=== PATIENT | female | born 1980 | race Caucasian/White ===

== ENCOUNTER 2017-01-31 07:18 | Emergency (ER) | payer BC, MEDICAID ==
[~2017-01-31] VITALS: Ht 165.1 cm; Wt 92.0 kg
[~2017-01-31 07:18] MED LIST: CIPR500T4 PO; NAPR220T95 PO; PHEN-426 PO; XANA1TAB6 PO
[2017-01-31 07:20] VITALS: BP 148/84; PULSE 100; RESP 16; TEMP 99.1; O2SAT 96
[2017-01-31] MEDS ORDERED: AZIT250T3 PO (07:36)
[2017-01-31] MEDS ORDERED: ALBU6.7H INH (07:36)
[2017-01-31] MEDS ORDERED: BENZ100 PO (07:36)
--- NOTE | 2017-01-31 07:37 | PD ---
HPI Chief Complaint: Cold / Flu Symptoms Time Seen by Provider: 07:20 Travel History International Travel<30 days: No Contact w/Intl Traveler<30days: No Traveled to known affect area: No History of Present Illness HPI 36-year-old female complains of cough and chest congestion with runny nose for about 3-4 days. + Fever intermittently overnight. Sleep is decreased 2/2 cough and fever. No shortness of breath. [id number] medications were not helpful. Patient has had similar prior episodes and reports improvement with antibiotics. PFSH Past Medical History Anxiety: Yes Diminished Hearing: No Genitourinary: Yes (H/O numerous UTI's) Influenza Vaccination: No ?: Not : 0 Ovarian Cysts: Yes Past Surgical History Genitourinary Surgery: Yes (LEFT KIDNEY REMOVED 2003/ LEFT URETER REMOVED 2008) Other Surgery: Yes (LT KIDNEY REMOVED 2003 FOR CHRONIC INFECTIONS LEFT KIDNEY NECROTIC) Social History Alcohol Use: Yes (OCC) Tobacco Use: No Substance Use: No Allergies-Medications (Allergen,Severity, Reaction): Coded Allergies: No Known Allergies (Verified Adverse Reaction, Unknown, 01/31/17) Reported Meds & Prescriptions Reported Meds & Active Scripts Active Proventil Hfa 6.7 GM Inh (Albuterol Sulfate) 90 Mcg/Act Aer 2 Puff INH Q4-6H PRN Tessalon Perles (Benzonatate) 100 Mg Cap 100 Mg PO TID PRN Azithromycin 250 Mg Tab 250 Mg PO DIRECTED Take 2 tabs (500 mg) on day 1 then 1 tab daily x 4 days. Review of Systems General / Constitutional: No: Fever HENT: Positive: Rhinitis, Rhinorrhea Respiratory: Positive: Cough, No: Shortness of Breath Physical Exam Narrative GENERAL: 36-year-old female well-nourished well-developed pleasant ENT: Minimal rhinorrhea. Posterior oropharynx is patent without erythema exudate or tonsillar hypertrophy. SKIN: Warm and dry. HEAD: Normocephalic. EYES: No scleral icterus. No injection or drainage. NECK: Supple, trachea midline. No JVD or lymphadenopathy. CARDIOVASCULAR: Regular rate and rhythm without murmurs, gallops, or rubs. RESPIRATORY: No significant dyspnea or tachypnea. Lungs are clear. Occasional cough. Data Data Last Documented VS Vital Signs Date Time Temp Pulse Resp B/P (MAP) Pulse Ox O2 Delivery O2 Flow Rate FiO2 12/21/17 07:20 99.1 100 16 148/84 (105) 96 Room Air vital signs reviewed Orders Orders Ed Discharge Order (01/31/17 07:37) MDM Medical Decision Making Medical Screen Exam Complete: Yes Emergency Medical Condition: Yes Medical Record Reviewed: Yes Differential Diagnosis pna, pharyngitis, URI Narrative Course Possible bronchitis, less likely PNA, possibly flue however symptoms > 72 hours Scripts as below Diagnosis Primary Impression: Bronchitis Referrals: Primary Care Physician 2 days Med/Other Pt SpecificInfo: Prescription(s) given Scripts Albuterol 6.7 GM Inh (Proventil Hfa 6.7 GM Inh) 90 Mcg/Act Aer 2 PUFF INH Q4-6H Y for SHORTNESS OF BREATH, #1 INHALER 0 Refills Prov: Jenaro Pierre MD 01/31/17 Benzonatate (Tessalon Perles) 100 Mg Cap 100 MG PO TID Y for COUGH, #12 CAP 0 Refills Prov: Jenaro Pierre MD 01/31/17 Azithromycin (Azithromycin) 250 Mg Tab 250 MG PO DIRECTED for Infection, #6 TAB 0 Refills Take 2 tabs (500 mg) on day 1 then 1 tab daily x 4 days. Prov: Jenaro Pierre MD 01/31/17 Disposition: 01 DISCHARGE HOME Condition: Stable Jenaro Pierre MD Jan 31, 2017 07:37
== END 2017-01-31 07:49 | disposition home or self-care (01) ==
LOC: PHED 07:18
DX: R05 Cough (principal); J40 Bronchitis, not specified as acute or chronic
CPT/HCPCS: 99284

== ENCOUNTER 2017-07-22 01:39 | Observation (INO) | payer MEDICAID ==
[~2017-07-22] VITALS: Ht 165.1 cm; Wt 92.4 kg
[~2017-07-22 01:39] MED LIST changes: +ALBU6.7H INH; +AZIT250T3 PO; +BENZ100 PO; -CIPR500T4 PO; -NAPR220T95 PO; -PHEN-426 PO; -XANA1TAB6 PO
[2017-07-22 01:41] VITALS: BP 138/80; PULSE 103; RESP 18; TEMP 97.6; O2SAT 100
[2017-07-22] MEDS ORDERED: ALPR1TAB3 PO (01:59)
[2017-07-22] MEDS ORDERED: SODIUM CHLORIDE 0.9% FLUSH 10 ML FLUSH IVF PRN (02:00)
[2017-07-22 02:06] VITALS: RESP 18; O2SAT 100
[2017-07-22 02:18] LABS: AUTOMATED NEUTROPHIL # 4.9 TH/MM3 (1.8-7.7); BASOPHIL % 0.5 % (0.0-2.0); EOSINOPHIL # 0.2 TH/MM3 (0-0.4); EOSINOPHIL % 2.6 % (0.0-4.0); HEMATOCRIT 35.5 % (35.0-46.0); HEMOGLOBIN 11.1 GM/DL (11.6-15.3); LYMPH % 29.5 % (9.0-44.0); LYMPHOCYTE # 2.3 TH/MM3 (1.0-4.8); MEAN CELL VOLUME 79.9 FL (80.0-100.0); MEAN CORPUSCULAR HEMOGLOBIN 25.1 PG (27.0-34.0); MEAN CORPUSCULAR HGB CONC 31.4 % (32.0-36.0); MEAN PLATELET VOLUME 8.1 FL (7.0-11.0); MONO % 5.5 % (0.0-8.0); MONOCYTE # 0.4 TH/MM3 (0-0.9); NEUT % 61.9 % (16.0-70.0); PLATELET COUNT 271 TH/MM3 (150-450); RED BLOOD COUNT 4.44 MIL/MM3 (4.00-5.30); WHITE BLOOD COUNT 7.8 TH/MM3 (4.0-11.0)
--- NOTE | 2017-07-22 02:25 | RADRPT ---
EXAM DATE: 07/22/2017 2:12 AM EDT AGE/SEX: 37 years / Female INDICATIONS: Shortness of breath. CLINICAL DATA: This is the patient's initial encounter. Patient reports that signs and symptoms have been present for 1 day and indicates a pain score of 0/10. MEDICAL/SURGICAL HISTORY: None. None. COMPARISON: No prior exams available for comparison. FINDINGS: Single AP view the chest was performed. The lungs are clear. Cardiomediastinal silhouette within normal limits. No evidence of pleural effusion or pneumothorax. CONCLUSION: No acute cardiopulmonary disease identified. Electronically signed by: Patrice Mcfarlane MD 07/22/2017 2:24 AM EDT
[2017-07-22 02:26] LABS: CHLORIDE 106 MEQ/L (98-107); SODIUM (NA) 139 MEQ/L (136-145)
--- NOTE | 2017-07-22 02:26 | PD ---
HPI Chief Complaint: Respiratory Symptoms Time Seen by Provider: 02:00 Travel History International Travel<30 days: No Contact w/Intl Traveler<30days: No Traveled to known affect area: No History of Present Illness HPI 37-year-old female presents to the emergency department for complaint of shortness of breath and chest pressure/heaviness, "like someone is sitting on my chest". Patient states she has noticed sudden onset heaviness in her chest like someone is sitting on her for the past couple of hours. Patient also complains of shortness of breath. Patient thought her blood pressure is elevated but upon arrival to the emergency department her blood pressure is found to be in normal range. Patient states symptoms have slightly improved. States not like her anxiety. Discomfort in the chest radiates to her left shoulder. No sweats no nausea or vomiting. Patient states she was recently diagnosed with elevated blood pressure but because it is intermittent has not been placed on any blood pressure medication. Patient has family history of high blood pressure. Patient denies personal history of dyslipidemia diabetes heart disease or tobaccoism. Patient is status post left nephrectomy secondary to recurrent complications post surgery at age 10 months. Patient reports no pleuritic pain no hemoptysis no febrile illness recent long distance travel protracted bedrest or surgical procedure. No personal history or family history report of premature onset CAD, connective tissue disorder, clotting disorder, or pulmonary embolism/DVT. Patient denies other concerns or complaints. PFSH Past Medical History Narrative Medical Anxiety newly diagnosed hypertension left nephrectomy recurrent UTIs ovarian cyst alcohol use; nursing notes reviewed Anxiety: Yes Cardiovascular Problems: Yes (HTN) Diminished Hearing: No Genitourinary: Yes (H/O numerous UTI's) Hypertension: Yes Tetanus Vaccination: < 5 Years Influenza Vaccination: No ?: Not : 0 Ovarian Cysts: Yes Past Surgical History Genitourinary Surgery: Yes (LEFT KIDNEY REMOVED 2003/ LEFT URETER REMOVED 2008) Other Surgery: Yes (LT KIDNEY REMOVED 2003 FOR CHRONIC INFECTIONS LEFT KIDNEY NECROTIC) Social History Alcohol Use: Yes (OCC) Tobacco Use: No Substance Use: No Allergies-Medications (Allergen,Severity, Reaction): Coded Allergies: No Known Allergies (Verified Adverse Reaction, Unknown, 07/22/17) Reported Meds & Prescriptions Reported Meds & Active Scripts Active Reported Alprazolam 1 Mg Tab 1 Mg PO DIRECTED PRN Review of Systems Except as stated in HPI: all other systems reviewed are Neg General / Constitutional: No: Fever, Chills HENT: No: Congestion Cardiovascular: Positive: Chest Pain or Discomfort Respiratory: Positive: Shortness of Breath Gastrointestinal: No: Nausea, Vomiting, Diarrhea Genitourinary: No: Dysuria Musculoskeletal: No: Myalgias, Arthralgias, Edema Skin: No Rash Neurologic: No: Weakness, Dizziness, Syncope Psychiatric: Positive: Anxiety Hematologic/Lymphatic: No: Easy Bruising Physical Exam Narrative GENERAL: Well-developed well-nourished female in no respiratory distress SKIN: Warm and dry. HEAD: Normocephalic. EYES: No scleral icterus. No injection or drainage. NECK: Supple, trachea midline. No JVD or lymphadenopathy. CARDIOVASCULAR: Regular rate and rhythm without murmurs, gallops, or rubs. RESPIRATORY: Breath sounds equal bilaterally. No accessory muscle use. GASTROINTESTINAL: Abdomen soft, non-tender, no RUQ tenderness no clinical De La Garza 's sign, nondistended. MUSCULOSKELETAL: No cyanosis, or edema. BACK: Nontender without obvious deformity. No CVA tenderness. Data Data Last Documented VS Vital Signs Date Time Temp Pulse Resp B/P (MAP) Pulse Ox O2 Delivery O2 Flow Rate FiO2 07/22/17 02:49 89 18 109/73 (85) 100 Room Air 07/22/17 01:41 97.6 Orders Orders Complete Blood Count With Diff (07/22/17 02:00) Comprehensive Metabolic Panel (07/22/17 02:00) B-Type Natriuretic Peptide (07/22/17 02:00) Act Partial Throm Time (Ptt) (07/22/17 02:00) Prothrombin Time / Inr (Pt) (07/22/17 02:00) Ckmb (Isoenzyme) Profile (07/22/17 02:00) Troponin I (07/22/17 02:00) Urinalysis - C+S If Indicated (07/22/17 02:00) Iv Access Insert/Monitor (07/22/17 02:00) Electrocardiogram (07/22/17 02:00) Ecg Monitoring (07/22/17 02:00) Oximetry (07/22/17 02:00) Oxygen Administration (07/22/17 02:00) Chest, Single Ap (07/22/17 02:00) Sodium Chloride 0.9% Flush (Ns Flush) (07/22/17 02:00) Urine Culture (07/22/17 02:35) Sodium Chlor 0.9% 1000 Ml Inj (Ns 1000 M (07/22/17 03:15) Ceftriaxone Inj (Rocephin Inj) (07/22/17 03:15) Ketorolac Inj (Toradol Inj) (07/22/17 03:15) D-Dimer (07/22/17 02:10) Aspirin Chew (Aspirin Chew) (07/22/17 04:00) Admit Order (Ed Use Only) (07/22/17 ) Radiologic Technologist / Telemetry FANTA.Q8H (07/22/17 03:57) Diet Npo (07/22/17 Breakfast) Activity Oob With Assistance (07/22/17 03:57) Notify Dr: Other (07/22/17 03:57) Activity Bed Rest With Brp (07/22/17 03:57) Vital Signs (Adult) Q4H (07/22/17 03:57) Cardiac Rhythm .As Directed (07/22/17 03:57) Notify Dr: Other .PRN (07/22/17 03:57) Notify DrDaniel Parameters (07/22/17 03:57) Resp Oxygen Nasal Cannula (07/22/17 ) Ckmb (Isoenzyme) Profile (07/22/17 05:10) Ckmb (Isoenzyme) Profile (07/22/17 08:10) Troponin I (07/22/17 05:10) Troponin I (07/22/17 08:10) Electrocardiogram (07/22/17 05:10) Electrocardiogram (07/22/17 08:10) ^ Obtain (07/22/17 03:57) Sodium Chloride 0.9% Flush (Ns Flush) (07/22/17 04:00) Sodium Chloride 0.9% Flush (Ns Flush) (07/22/17 09:00) Nitroglycerin Sl (Nitrostat Sl) (07/22/17 04:00) Radiologic Technologist / Telemetry FANTA.Q8H (07/22/17 03:57) Labs Laboratory Tests Test 07/22/17 02:10 07/22/17 02:35 White Blood Count 7.8 TH/MM3 Red Blood Count 4.44 MIL/MM3 Hemoglobin 11.1 GM/DL Hematocrit 35.5 % Mean Corpuscular Volume 79.9 FL Mean Corpuscular Hemoglobin 25.1 PG Mean Corpuscular Hemoglobin Concent 31.4 % Red Cell Distribution Width 15.0 % Platelet Count 271 TH/MM3 Mean Platelet Volume 8.1 FL Neutrophils (%) (Auto) 61.9 % Lymphocytes (%) (Auto) 29.5 % Monocytes (%) (Auto) 5.5 % Eosinophils (%) (Auto) 2.6 % Basophils (%) (Auto) 0.5 % Neutrophils # (Auto) 4.9 TH/MM3 Lymphocytes # (Auto) 2.3 TH/MM3 Monocytes # (Auto) 0.4 TH/MM3 Eosinophils # (Auto) 0.2 TH/MM3 Basophils # (Auto) 0.0 TH/MM3 CBC Comment DIFF FINAL Differential Comment Prothrombin Time 10.2 SEC Prothromb Time International Ratio 1.0 RATIO Activated Partial Thromboplast Time 24.1 SEC D-Dimer Quantitative (PE/DVT) 0.21 MG/L FEU Blood Urea Nitrogen 11 MG/DL Creatinine 0.78 MG/DL Random Glucose 113 MG/DL Total Protein 7.4 GM/DL Albumin 3.1 GM/DL Calcium Level 8.3 MG/DL Alkaline Phosphatase 75 U/L Aspartate Amino Transf (AST/SGOT) 11 U/L Alanine Aminotransferase (ALT/SGPT) 14 U/L Total Bilirubin 0.2 MG/DL Sodium Level 139 MEQ/L Potassium Level 3.5 MEQ/L Chloride Level 106 MEQ/L Carbon Dioxide Level 26.3 MEQ/L Anion Gap 7 MEQ/L Estimat Glomerular Filtration Rate 82 ML/MIN Total Creatine Kinase 99 U/L Troponin I LESS THAN 0.02 NG/ML B-Type Natriuretic Peptide 17 PG/ML Urine Color YELLOW Urine Turbidity CLOUDY Urine pH 6.5 Urine Specific [place] 1.015 Urine Protein TRACE mg/dL Urine Glucose (UA) NEG mg/dL Urine Ketones NEG mg/dL Urine Occult Blood TRACE Urine Nitrite POS Urine Bilirubin NEG Urine Urobilinogen 0.2 MG/DL Urine Leukocyte Esterase LARGE Urine RBC 0-3 /hpf Urine WBC 25-49 /hpf Urine Squamous Epithelial Cells 6-8 /hpf Urine Bacteria MANY /hpf Microscopic Urinalysis Comment CULTURE INDICATED MDM Medical Decision Making Medical Screen Exam Complete: Yes Emergency Medical Condition: Yes Medical Record Reviewed: Yes Interpretation(s) EKG: Normal sinus rhythm rate [address] elevation nonspecific T-wave changes septally d-dimer: 0.21, not elevated troponin I: less than 0.02, not elevated; bnp: 17, not elevated; ck: 99, not elevated CBC & BMP Diagram 07/22/17 02:10 Total Protein 7.4, Albumin 3.1 L, Calcium Level 8.3 L, Alkaline Phosphatase 75, Aspartate Amino Transf (AST/SGOT) 11 L, Alanine Aminotransferase (ALT/SGPT) 14, Total Bilirubin 0.2 Vital Signs Date Time Temp Pulse Resp B/P (MAP) Pulse Ox O2 Delivery O2 Flow Rate FiO2 07/22/17 02:49 89 18 109/73 (85) 100 Room Air 07/22/17 02:06 18 100 Room Air 07/22/17 02:06 100 Room Air 07/22/17 01:55 18 100 Room Air 07/22/17 01:41 97.6 103 18 138/80 (99) 100 UA: positive nitrites, positive WBC's, many bacteria; cx indicated Differential Diagnosis Dyspnea, chest pain, atypical chest pain, ACS, PE, biliary colic; also to consider pneumothorax, musculoskeletal pain, esophageal spasm, pleurisy, costochondritis, anxiety Narrative Course Patient placed on manager cardiac cath IV access obtained specimens collections of resulting cardiac risk profile low --no dm, no tobacco, no dyslipidemia, no FH early onset cad, age less than 40/50 yo, (+)borderline htn; consider biliary colic Patient labs wnl except ua toradol NS and rocephin administered ; pain 1-2/10; will add d-dimer to eval patient aware d-dimer 0.21, not elevated; patient continues to comment CP "like someone sitting on my chest"; 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
[2017-07-22 02:29] LABS: ALBUMIN 3.1 GM/DL (3.4-5.0); BICARBONATE 26.3 MEQ/L (21.0-32.0); CALCIUM 8.3 MG/DL (8.5-10.1)
[2017-07-22 02:30] LABS: BLOOD UREA NITROGEN 11 MG/DL (7-18); GLUCOSE,RANDOM 113 MG/DL (74-106); PROTHROMBIN TIME - PATIENT 10.2 SEC (9.8-11.6)
[2017-07-22 02:33] LABS: ALT (GPT) 14 U/L (10-53); AST (GOT) 11 U/L (15-37); CREATININE 0.78 MG/DL (0.50-1.00); GLOMERULAR FILTRATION RATE 82 ML/MIN (>89)
[2017-07-22 02:34] LABS: TOTAL BILIRUBIN ADULT 0.2 MG/DL (0.2-1.0); TOTAL PROTEIN 7.4 GM/DL (6.4-8.2)
[2017-07-22 02:35] LABS: ALKALINE PHOSPHATASE 75 U/L (45-117)
[2017-07-22 02:37] LABS: TROPONIN I LESS THAN 0.02 NG/ML (0.02-0.05)
[2017-07-22 02:43] LABS: BILIRUBIN, URINE NEG (NEG); BLOOD, URINE TRACE (NEG); GLUCOSE,URINE NEG (NEG); KETONE, URINE NEG (NEG); NITRITE,URINE POS (NEG); PH, URINE 6.5 (5.0-8.5); URINE COLOR YELLOW (YELLW/STRAW); URINE LEUKOCYTE ESTERASE LARGE (NEG)
[2017-07-22 02:49] VITALS: BP 109/73; PULSE 89; RESP 18; O2SAT 100
[2017-07-22 02:53] LABS: BACTERIA, URINE MANY /hpf; RBC, URINE 0-3 /hpf (0-3)
[2017-07-22] MEDS ORDERED: cefTRIAXone INJ 1,000 MG in SODIUM CHLORIDE 0.9% INJ 100 ML IV ONE (03:15)
[2017-07-22] MEDS ORDERED: KETOROLAC TROMETHAMINE 30 MG/ML (IVP) VIAL IV PUSH ONE (03:15)
[2017-07-22] MEDS ORDERED: SODIUM CHLOR 0.9% 1000 ML INJ 1,000 ML IV ONE ×2 (03:15→04:15)
[2017-07-22 03:34] LABS: D-DIMER 0.21 MG/L FEU (0.00-0.50)
[2017-07-22] MEDS ORDERED: NITROGLYCERIN 0.4 MG SL 25 TABS/BTL SL PRN (04:00)
[2017-07-22] MEDS ORDERED: ASPIRIN 81 MG CHEW TAB CHEW ONE (04:00)
[2017-07-22] MEDS ORDERED: SODIUM CHLORIDE 0.9% FLUSH 10 ML FLUSH IV FLUSH PRN (04:00)
[2017-07-22 04:07] VITALS: BP 139/75; PULSE 95; RESP 16; O2SAT 100
[2017-07-22] MEDS ORDERED: NITROGLYCERIN 0.4 MG SL 25 TABS/BTL SL ONE (04:15)
[2017-07-22] MEDS ORDERED: METOCLOPRAMIDE HCL 10 MG/2 ML VIAL IV PUSH ONE (04:15)
[2017-07-22 04:18] VITALS: BP 109/71; PULSE 104; RESP 16; O2SAT 99
[2017-07-22 04:43] VITALS: BP 117/66
[2017-07-22] MEDS ORDERED: SODIUM CHLORIDE 0.9% FLUSH 10 ML FLUSH IV FLUSH SCH (09:00)
--- NOTE | 2017-07-22 14:45 | EKG ---
Date Performed: 07/22/2017 Time Performed: 02:15:00 PTAGE: 37 years EKG: Sinus rhythm LOW QRS VOLTAGE IN PRECORDIAL LEADS NONSPECIFIC T-WAVE ABNORMALITY BORDERLINE ECG Since the PREVIOUS TRACING , no significant change noted PREVIOUS TRACIN02/25/2009 12.33 DOCTOR: Rocael Loaiza Interpretating Date/Time 07/22/2017 14:43:40
--- NOTE | 2017-07-22 14:46 | EKG ---
Date Performed: 07/22/2017 Time Performed: 04:11:11 PTAGE: 37 years EKG: SINUS TACHYCARDIA POSSIBLE LEFT ATRIAL ENLARGEMENT LOW QRS VOLTAGE IN PRECORDIAL LEADS NONS PECIFIC T-WAVE ABNORMALITY ABNORMAL RHYTHM ECG INTERPRETATION BASED ON A DEFAULT AGE OF 38 YEARS Sinc e the PREVIOUS TRACING , no significant change noted PREVIOUS TRACIN07/22/2017 @ 02.15 DOCTOR: Rocael Loaiza Interpretating Date/Time 07/22/2017 14:44:11
== END 2017-07-22 05:04 | disposition left against medical advice (07) ==
LOC: PHED 01:39 → PHEDA 03:59
PROVIDERS: ADMIT Hospitalist; ATTEND Hospitalist
DX: R07.2 Precordial pain (principal); N39.0 Urinary tract infection, site not specified; R06.02 Shortness of breath; I10 Essential (primary) hypertension; R00.0 Tachycardia, unspecified; F41.9 Anxiety disorder, unspecified; Z90.5 Acquired absence of kidney
CPT/HCPCS: 71045; 80053; 81001; 82550; 83880; 84484; 85025; 85379; 85610; 85730; 87077; 87086; 87186; 93005; 96365; 96375; 99285; G0378; J0696; J1885; J2765; J7030